=== PATIENT | female | born 1940 ===

== ENCOUNTER 2018-02-17 08:32 | Day surgery (SDC) | payer MEDICARE, SELFPAY ==
[2018-02-17] MEDS: PROPARACAINE 0.5% OPHTH SOL 2 DROPS EYE-OP (09:20)
[2018-02-17] MEDS: CATARACT EYE COMPOUND (10 DROPS/SYRINGE) 3 DROPS EYE-OP ×3 (09:25→09:35)
[2018-02-17 09:30] VITALS: BP 146/78; PULSE 64; RESP 15; TEMP 36.5; O2SAT 100
--- NOTE | 2018-02-17 10:17 | P.OP.PRE_ITS ---
Pre-operative Note Interval Note Changes: No
--- NOTE | 2018-02-17 10:17 | P.OP_ITS ---
Operative Date/Time/Diagnoses Pre-op diagnosis: Cataract Right eye Post-op diagnosis: same Procedure & Clinicians Procedure: Cataract Surgery Same procedure as scheduled: Yes Surgeon: Chapo Ocasio Anesthesia Type: MAC +/- and Sedation Operative Notes Procedure in detail: Patient brought to the operating suite. Tetracaine drops placed in the right eye. Patient was prepped and draped in sterile manner. Wire lid speculum was placed in the eye. Betadine drops were placed on the eye. This was irrigated. Lidocaine jelly was placed on the eye. A paracentesis port was created with a side-port blade. 0.1 mL 1% preservative free lidocaine was injected into the anterior chamber. The anterior chamber was deepened with viscoelastic. 2.6 mm keratome was used to create a temporal clear corneal incision. Cystotome and Utrata forceps were used to create continuous tear capsulorrhexis. Balanced salt solution was used to hydro dissect the nucleus. The phacoemulsification handpiece was inserted and the nucleus was removed using the stop and chop technique. The irrigation aspiration handpiece was inserted and the remaining cortex was removed. Anterior chamber was deepened with viscoelastic. An Kelly ZCB00 intraocular lens with a power of 23.0 was injected into the capsular bag. Irrigation aspiration handpiece was inserted and the remaining viscoelastic was removed. Incision was hydrated with balanced salt solution and found to be leak free with pressure with Weck- Ramila sponges. 0.1 mL Vigamox injected anterior chamber. 0.3 mL Kenalog 10 mg was injected subconjunctivally. Lid speculum was removed. The patient left the operating room in excellent condition. Complications: none Condition: stable Disposition: same day surgery
--- NOTE | 2018-02-17 10:17 | PM.PREOP ---
Pre-operative Note Interval Note Changes: No
--- NOTE | 2018-02-17 10:18 | SUR.OPER ---
Supine on eye stretcher, head on extension cradle secured with tape. Arms tucked at sides with blanket. Pillow under knees.
[2018-02-17] MEDS: MOXIFLOXACIN OPHTH DROPS 3 ML BOTTLE 2 DROPS INJ (10:28)
[2018-02-17] MEDS: CHONDROIDTIN/SOD HYALURONATE 1.05 ML SYRINGE INTRAOCULA (10:28)
[2018-02-17] MEDS: PHENYLEPHRINE/LIDOCAINE 3ML VIAL (OR) EYE-OP (10:28)
[2018-02-17] MEDS: LIDOCAINE JELLY 2% 5 ML 1 APPLIC TOP (10:28)
[2018-02-17] MEDS: TETRACAINE 0.5% OPHTH DROPS 15 ML 2 DROPS EYE-RIGHT (10:29)
[2018-02-17] MEDS: TRIAMCINOLONE 50 MG/5 ML VIAL INJ (10:29)
[2018-02-17] MEDS: BALANCED SALT IRRIG SOLN NO.2 500 ML, EPINEPHrine 1 MG IRR (10:30)
--- NOTE | 2018-02-17 10:37 | SUR.OPER ---
Supine on eye stretcher, head on extension cradle secured with tape. Arms tucked at sides with blanket. Pillow under knees.
[2018-02-17 10:54] VITALS: BP 120/71; PULSE 65; RESP 16; TEMP 36.6; O2SAT 98
--- NOTE | 2018-02-17 11:15 | SUR.PHASEII ---
pt ready to go, but needing to go to pharmacy. pt dressed and ready, drinking tea and waiting for to return.
== END 2018-02-17 11:24 | disposition home or self-care (01) ==
PROVIDERS: PCP Physician Assistant; Visit Provider Ophthalmology
DX: H25.11 Age-related nuclear cataract, right eye (principal)
CPT/HCPCS: J0171; J2250; J3010; J3301

== ENCOUNTER → 2020-08-29 20:24 | Outpatient (ROUT) | payer OTHER, SELFPAY ==
[2020-08-29 20:39] LABS: Alanine Aminotransferase 12 IU/L (<35); Albumin Globulin Ratio 1.4 (1.0-2.8); Alkaline Phosphatase 76 U/L (38-126); Aspartate Aminotransferase 22 IU/L (14-36); BUN Creatinine Ratio 27.2 (6-22); Bilirubin Total 0.6 mg/dL (0.2-1.3); Blood Urea Nitrogen 22 mg/dL (7-17); Calcium 9.5 mg/dL (8.4-10.2); Carbon Dioxide 31 mmol/L (22-32); Chloride 103 mmol/L (98-107); Cholesterol 200 mg/dL (140-199); Estimated Glomerular Filt Rate > 60.0 mL/min (>60); Globulin 2.8 g/dL (1.7-4.1); Glucose 132 mg/dL (80-110); HDL Cholesterol 56 mg/dL (40-60); HEMOLYSIS < 15 (0-50); LDL Cholesterol Calculated 123 mg/dL (<100); Potassium 4.2 mmol/L (3.4-5.1); Sodium 140 mmol/L (137-145); Total Protein 6.8 g/dL (6.3-8.2); Triglycerides 103 mg/dL (35-150)
== END ==
PROVIDERS: PCP Physician Assistant; Visit Provider Internal Medicine
DX: I10 Essential (primary) hypertension (principal); E78.2 Mixed hyperlipidemia
CPT/HCPCS: 80053; 80061

== ENCOUNTER → 2023-10-02 12:19 | Outpatient (CLI) | payer MEDICARE, SELFPAY ==
--- NOTE | 2023-10-02 | DI.RAD.S_ITS ---
Bone Density Report Name: MARY FUCHS Age: 83 Sex: Female Ethnicity: White Date of : 1940 Indication: postmenopausal; screening for osteoporosis; Referring Provider: BUD DAWKINS Study: Bone densitometry was performed. Exam Date: October 02, 2023 Accession number: [id number] Bone Density: Region BMD T-score Z-score Classification AP Spine(L1-L4) 0.947 -0.9 2.0 Normal Femoral Neck (Left) 0.641 -1.9 0.6 Osteopenia Total Hip (Left) 0.772 -1.4 0.9 Osteopenia Femoral Neck (Right) 0.657 -1.7 0.8 Osteopenia Total Hip (Right) 0.758 -1.5 0.8 Osteopenia Total Hip Mean 0.765 -1.5 0.9 Osteopenia World Health Organization criteria for BMD impression classify patients as: Normal (T-score at or above -1.0), Osteopenia (T-score between -1.0 and -2.5), or Osteoporosis (T-score at or below -2.5). 10-year Fracture Risk(1): Major Osteoporotic Fracture 15% Hip Fracture 4.5% Reported Risk Factors: [place] (), Neck BMD=0.641, BMI=25.0 (1) FRAX(R) Version 3.08. Fracture probability calculated for an untreated patient. Fracture probability may be lower if the patient has received treatment. Previous Exams: -- Region Exam Age BMD T-score BMD Change BMD Change Date g/cm2 vs Baseline vs Previous -- AP Spine (L1-L4) 10/02/2023 83 0.947 -0.9 -0.101 (-9.6%)# -0.101 (-9.6%)# 04/08/2005 64 1.048 0.0 Total Hip(Left) 10/02/2023 83 0.772 -1.4 -0.152 (-16.5%)# -0.152 (-16.5%)# 04/08/2005 64 0.924 -0.2 Total Hip(Right) 10/02/2023 83 0.758 -1.5 -0.179 (-19.1%)# -0.179 (-19.1%)# 04/08/2005 64 0.937 0.0 -- *Denotes significance at 95% confidence level, LSC for AP Spine = 0.022 g/cm2, LSC for Total Hip = 0.027 g/cm2 # Denotes dissimilar scan types or analysis methods Impression: The patient has low bone mass, based on the Left Femoral Neck T-score. The patient has an estimated ten-year risk of hip fracture of 4.5% and an estimated ten-year risk of major fracture of 15%, based on the WHO FRAX algorithm. No significant bone loss was observed. Discussion: BONE DENSITY IS LOW AT ONE OR MORE SKELETAL SITES. THE PATIENT'S BMD AND CLINICAL RISK FACTORS CONTRIBUTE TO THIS PATIENT'S INCREASED RISK OF FRACTURE. This patient's lowest T-score is low at one or more skeletal sites. It meets the World Health Organization's (WHO) criteria for low bone mass (T-score between -1.0 and -2.5). The patient's 10-year risk of hip fracture as calculated by FRAX exceeds the threshold where pharmacological therapy is recommended by the National Osteoporosis Foundation (NOF). However, all treatment decisions require clinical judgment and consideration of individual patient factors, including patient preferences, comorbidities, previous drug use, risk factors not captured in the FRAX model (e.g., frailty, falls, vitamin D deficiency, increased bone turnover, interval significant decline in bone density) and possible under or overestimation of fracture risk by FRAX. The patient should follow a healthful lifestyle (good nutrition with adequate calcium and vitamin D, and appropriate weight-bearing exercise). Follow-Up: Consider a repeat BMD and Vertebral Fracture Assessment (VFA) exam in 2 years or sooner if medically necessary, to reassess this patient's status. Reported by: JOSTIN DILL M.D. on 10/02/2023 1:02:00 PM.
== END ==
PROVIDERS: Referring Provider Internal Medicine; Visit Provider Internal Medicine
DX: Z78.0 Asymptomatic menopausal state (principal); M85.852 Other specified disorders of bone density and structure, left thigh
CPT/HCPCS: 77080

== ENCOUNTER 2024-04-06 11:41 | Emergency (ER) | payer MEDICARE, SELFPAY ==
[2024-04-06 12:09] VITALS: BP 122/64; PULSE 68; RESP 16; TEMP 36.5; O2SAT 98; BMI 24.1
--- NOTE | 2024-04-06 12:32 | DI.RAD.S_ITS ---
PROCEDURE: XR HIP W PEL IF DONE LT 2V INDICATIONS: fall TECHNIQUE: 2 views of the hip were acquired. COMPARISON: None. FINDINGS: Bones: Abnormal projection of the medial superior pubic ramus. Soft tissues: No suspicious soft tissue calcifications or masses. IMPRESSION: Abnormal projection of the medial superior pubic ramus, concerning for fracture. Differential includes artifact of projection. Dictated by: Jitendra Garza M.D. on 04/06/2024 at 13:31 Approved by: Jitendra Garza M.D. on 04/06/2024 at 13:31
[2024-04-06] MEDS: ACETAMINOPHEN 325 MG TABLET 975 MG PO (12:42)
[2024-04-06 13:31] VITALS: BP 115/60; PULSE 72; RESP 19; O2SAT 100
--- NOTE | 2024-04-06 13:41 | DI.CT.S_ITS ---
PROCEDURE: CT PEL WO CON INDICATIONS: left hip pain TECHNIQUE: Noncontrast 3 mm axial sections acquired through the bony pelvis, with coronal and sagittal reformatting. COMPARISON: Merged With [facility], CR, XR HIP W PEL IF DONE LT 2V, 04/06/2024, 12:54. FINDINGS: Image quality: Excellent. Bones: Non displaced medial left superior pubic ramus fracture. Remaining osseous structures appear intact. Soft tissues: Minimal scattered diverticular present. Nonobstructive gas pattern. Bladder is distended. IMPRESSION: Nondisplaced medial left superior pubic ramus fracture. Dictated by: Silvia Hurd M.D. on 04/06/2024 at 14:17 Approved by: Silvia Hurd M.D. on 04/06/2024 at 14:19
--- NOTE | 2024-04-06 14:01 | ED.FALL ---
HPI - Fall <Alysia Sanchez PA-C - Last Filed: 04/06/24 14:56> General Chief Complaint: Fall Stated Complaint: GLF, no blood thinners Time Seen by Provider: 04/06/24 12:09 History of Present Illness HPI Narrative: 83-year-old female with past medical history Alzheimer disease, hypertension, depression brought in by her to the ED status post a fall sustained yesterday. The fall was unwitnessed, in the yard of patient's home where she lives with her . Patient's states that he saw her lying on the floor on the grass. Patient denies head strike, LOC. denies neck pain, back pain. Patient is endorsing pain in the left hip, and is having a hard time putting any weight on it. Not on blood thinners. Related Data Home Medications Medication Instructions Recorded Confirmed atorvastatin 10 mg tablet (Lipitor) 10 mg PO HS ##0 03/24/11 12/25/23 losartan 50 mg-hydrochlorothiazide 1 tab PO DAILY 02/17/18 12/25/23 12.5 mg tablet cholecalciferol (vitamin D3) 125 5,000 unit PO DAILY 10/05/19 12/25/23 mcg (5,000 unit) capsule mecobalamin (vitamin B12) 5,000 mcg PO 10/05/19 12/25/23 mcg disintegrating tablet presservision ophthalmic (eye) 10/05/19 12/25/23 Previous Rx's Medication Instructions Recorded sertraline 25 mg tablet 75 mg (3 x 25 mg) PO DAILY 12/25/23 depression #240 tabs donepezil 10 mg tablet 10 mg PO BEDTIME #100 tabs 01/19/24 Allergies Allergy/AdvReac Type Severity Reaction Status Date / Time bee venom protein (honey bee) Allergy Intermediate rash Verified 04/06/24 12:12 Review of Systems <Alysia Sanchez PA-C - Last Filed: 04/06/24 14:56> Constitutional Constitutional: Denies chills, Denies fatigue, Denies fever(s), Denies frequent falls, Denies lethargy and Denies weakness Eyes Eyes: Denies change in vision, Denies eye discharge, Denies irritation and Denies loss of vision ENT Ears, Nose, Mouth, and Throat: Denies change in voice, Denies dizziness, Denies neck pain, Denies sore throat and Denies throat swelling Cardiovascular Cardiovascular: Denies chest pain, Denies irregular heart rhythm, Denies lightheadedness, Denies palpitations, Denies dyspnea, Denies dyspnea on exertion and Denies orthopnea Respiratory Respiratory: Denies cough, Denies dyspnea, Denies dyspnea on exertion and Denies wheezing Gastrointestinal Gastrointestinal: Denies abdominal pain, Denies change in bowel habits, Denies diarrhea, Denies nausea and Denies vomiting Musculoskeletal Musculoskeletal: Denies neck pain and Denies numbness Comments: Left hip pain Integumentary/Breasts Skin/Breast: Denies pruritus, Denies erythema, Denies rash and Denies wounds Neurologic Neurologic: Denies behavioral changes, Denies confusion, Denies dizziness, Denies frequent falls, Denies loss of vision, Denies numbness and Denies weakness Psychiatric Psychiatric: Denies anxiety, Denies behavioral changes, Denies confusion, Denies depression, Denies homicidal ideation and Denies suicidal ideation Endocrine Endocrine: Denies fatigue, Denies flushing and Denies palpitations Hematologic/Lymphatic Hematologic/Lymphatic: Denies easy bruising Allergic/Immunologic Allergic/Immunologic: Denies urticaria, Denies throat swelling and Denies wheezing Patient History <Alysia Sanchez PA-C - Last Filed: 04/06/24 14:56> Medical History (Updated 04/06/24 @ 14:39 by Alysia Sanchez PA-C) Moderate cognitive impairment Mild cognitive impairment Major depressive disorder, single episode with atypical features Social History household members: spouse Smoking Status: Former smoker Smoking Status: Former smoker alcohol intake frequency: a few times a month Substance Use Type: does not use Exam <Alysia Sanchez PA-C - Last Filed: 04/06/24 14:56> Narrative Exam Narrative: Const General:?cooperative, healthy appearing and comfortable [facility] Head:?normal to inspection Ears:?hearing grossly normal bilaterally Nose:?external nose normal Face and sinus:?normal facial exam and sinuses nontender Mouth:?oral mucosae normal Throat:?posterior oropharynx normal Eyes General:?appearance normal, both eyes and all related structures Neck Neck:?normal visual inspection and no lymphadenopathy noted Resp Effort & Inspection:?normal respiratory effort Auscultation:?clear to auscultation bilaterally Cardio Rate:?regular rate Rhythm:?regular rhythm Musculoskeletal There is some tenderness to palpation of the left hip. No swelling, bruising, deformities. Patient is in pain trying to bear weight on the left leg. Patient is neurovascularly intact. Neuro General:?patient alert, patient awake and patient oriented x3 Initial Vital Signs Initial Vital Signs: Vital Signs Temperature 97.7 F 04/06/24 12:09 Pulse Rate 68 04/06/24 12:09 Respiratory Rate 16 04/06/24 12:09 Blood Pressure 122/64 04/06/24 12:09 Pulse Oximetry 98 04/06/24 12:09 Oxygen Delivery Method Room Air 04/06/24 12:09 <Jose Guadalupe Richter MD - Last Filed: 04/06/24 20:20> Initial Vital Signs Initial Vital Signs: Vital Signs Temperature 97.7 F 04/06/24 12:09 Pulse Rate 68 04/06/24 12:09 Respiratory Rate 16 04/06/24 12:09 Blood Pressure 122/64 04/06/24 12:09 Pulse Oximetry 98 04/06/24 12:09 Oxygen Delivery Method Room Air 04/06/24 12:09 Course <Alysia Sanchez PA-C - Last Filed: 04/06/24 14:56> Orders Ordered: ED Orders 04/06/24 12:32 XR hip w pel if done LT 2V Stat 04/06/24 13:41 CT pelvis wo con Stat 04/06/24 14:30 Consult to [facility] [place] - [facility] [employer] Stat Discontinued Medications Acetaminophen (Acetaminophen 325 Mg Tablet) 975 mg PO NOW ONE Stop: 04/06/24 12:33 Last Admin: 04/06/24 12:42 Dose: 975 mg Documented By: KW Vital Signs Vital signs: Vital Signs - 8 hr 04/06/24 13:31 04/06/24 15:03 Pulse Rate 72 76 Respiratory Rate 19 18 Blood Pressure 115/60 134/65 Pulse Oximetry 100 97 Oxygen Delivery Method Room Air Room Air <Jose Guadalupe Richter MD - Last Filed: 04/06/24 20:20> Orders Ordered: ED Orders 04/06/24 12:32 XR hip w pel if done LT 2V Stat 04/06/24 13:41 CT pelvis wo con Stat 04/06/24 14:30 Consult to [facility] [place] - [employer] [employer] Stat Discontinued Medications Acetaminophen (Acetaminophen 325 Mg Tablet) 975 mg PO NOW ONE Stop: 04/06/24 12:33 Last Admin: 04/06/24 12:42 Dose: 975 mg Documented By: NEGRO Vital Signs Vital signs: Vital Signs - 8 hr 04/06/24 13:31 04/06/24 15:03 Pulse Rate 72 76 Respiratory Rate 19 18 Blood Pressure 115/60 134/65 Pulse Oximetry 100 97 Oxygen Delivery Method Room Air Room Air MDM - Fall <Alysia Sanchez PA-C - Last Filed: 04/06/24 14:56> [facility] Narrative Medical decision making narrative: 83-year-old female with past medical history Alzheimer disease, hypertension, depression brought in by her to the ED status post a fall sustained yesterday. Will obtain x-ray of the hip and pelvis. Will give Tylenol for pain. Will reassess. X-ray shows an abnormal projection of the medial superior pubic ramus, concerning for fracture. Differential includes artifact of projection. Will obtain CT to better characterize. CT shows a nondisplaced medial left superior pubic ramus fracture. Discussed findings with patient and patient's . Recommend Tylenol and ibuprofen for pain control and ambulation as tolerated. Social work was consulted for resources. Patient was provided a walker for ambulation. Patient's is confident that they will be able to get her to the bathroom and back and such. Recommend follow-up with PCP/ortho. ED return precautions discussed with patient. Patient verbalized understanding. Medical records reviewed: Yes Discharge Plan Departure Patient Disposition: Home Clinical Impression: Fracture of pubic ramus Qualifiers: Encounter type: initial encounter Fracture type: closed Laterality: left Qualified Code(s): S32.592A - Other specified fracture of left pubis, initial encounter for closed fracture Instructions: Pelvic Fracture, How to Prevent Falls Activity Restrictions/Additional Instructions: You were evaluated in the ED today for left-sided hip pain after a fall. We did an x-ray and a CT scan which shows a pelvic fracture that is stable. It is okay to bear weight and walk as is comfortable. Please also take Tylenol and ibuprofen for pain relief. Please follow-up with your PCP as soon as possible. Return to the ED if you have worsening symptoms, numbness, tingling, weakness. Prescriptions: No Action presservision ophthalmic (eye) cholecalciferol (vitamin D3) 125 mcg (5,000 unit) capsule 5,000 unit PO DAILY mecobalamin (vitamin B12) 5,000 mcg tablet,disintegrating PO sertraline 25 mg tablet 75 mg PO DAILY Qty: 240 2RF atorvastatin [Lipitor] 10 MG tablet 10 mg PO HS Qty: 0 donepezil 10 mg tablet 10 mg PO BEDTIME Qty: 100 1RF losartan-hydrochlorothiazide 50-12.5 mg Tablet 1 tab PO DAILY Referrals: Miscellaneous,Doctor, [Primary Care Provider] - Stand Alone Forms: Patient Portal/API ED Sign-out <Jose Guadalupe Richter MD - Last Filed: 04/06/24 20:20> Cosign ED Attending Cosignature Attestation: I was immediately available in the department for consultation. This documentation has been reviewed and I agree with assessment and plan. Supervised by Jose Guadalupe Richter MD
[2024-04-06 15:03] VITALS: BP 134/65; PULSE 76; RESP 18; O2SAT 97
--- NOTE | 2024-04-06 15:11 | CM.SWNOTE ---
ED LUMBER SALES SUPERVISOR Note Patient is 83 y/o female who presents to ED via private vehicle with spouse due to concern for unwitnessed GLF yesterday and presents with hip pain today. Patient does not have current PCP listed, Patient has [facility] and Medicare insurance. Patient sees Psychiatrist Dr. Mills for Anxiety, MDD, and Major Neurocognitive disorder due to Alzheimer's Disease. LUMBER SALES SUPERVISOR receives consult for patient upon her d/c, patient is diagnosed with pubic ramus fracture. LUMBER SALES SUPERVISOR enters room to meet with patient, present in room is patient's spouse. Patient presents A/O to place, person and self. Patient's spouse primarily answers questions for patient and denies any concerns at home. Spouse states that he cares for patient. It is reported that patient can ambulate at baseline and transfer. Patient was able to transfer from wheelchair to toilet in the ED. It is reported that patient doesn't drive and patient is not as mobile as before. Per Dr. Mills's report, patient's most recent MOCA score is 17/30. Patient's spouse states they are working with their residential care insurance to secure in home care for patient. LUMBER SALES SUPERVISOR offers resources and patient's spouse declines. LUMBER SALES SUPERVISOR provides spouse with senior resource guide, lists of private pay and agencies of caregivers and list of DME resources. LUMBER SALES SUPERVISOR asks about natural supports and spouse reports that their daughter in [place] will be visiting this weekend. Patient's spouse denies concerns or LUMBER SALES SUPERVISOR needs at this time and states that they are both cared for and not needy. Patient's spouse presents preoccupied with trying to get to his eye doctor appt, this LUMBER SALES SUPERVISOR calls the office to inform them that he may be a few minutes late. ED provider discharges patient upon medical clearance with FWW with recommendation to f/u with Ortho, PCP and manage pain with medication. Delfina Perez, FLATBED OWNER OPERATOR
== END 2024-04-06 15:00 | disposition home or self-care (01) ==
PROVIDERS: Emergency Provider Student in an Organized Health Care Education/Training Program
DX: S32.512A Fracture of superior rim of left pubis, initial encounter for closed fracture (principal); W18.30XA Fall on same level, unspecified, initial encounter
CPT/HCPCS: 72192; 73502; 99283; 99284